=== PATIENT | female | born 1990 | race African-American/Black ===

== ENCOUNTER 2018-03-29 17:23 | Emergency (ER) | payer SELFPAY ==
[~2018-03-29] VITALS: Ht 165.1 cm; Wt 53.9 kg
[2018-03-29 18:10] LABS: HEMATOCRIT 32.1 % (36.0-46.0); HEMOGLOBIN 10.8 G/DL (11.9-15.5); MCH 31.2 PG (29.0-34.0); MCHC 33.6 G/DL (30.0-36.0); MCV 92.8 FL (83-99); PLATELET COUNT 253 K/uL (156-360); RBC DIS.WIDTH-CV 12.8 % (11.8-14.6); RBC DIS.WIDTH-SD 43.8 % (39-53); RED BLOOD COUNT 3.46 M/uL (3.80-5.20); WHITE BLOOD COUNT 7.7 K/uL (4.1-10.2)
[2018-03-29 18:18] LABS: ALBUMIN 4.7 g/dL (3.2-4.8); CHLORIDE 108 mEq/L (99-109); POTASSIUM 4.2 mEq/L (3.7-5.4); SODIUM 140 mEq/L (136-147)
[2018-03-29 18:20] LABS: GLUCOSE 100 mg/dL (70-99)
[2018-03-29 18:21] LABS: TOTAL PROTEIN 7.8 g/dL (6.4-8.3)
[2018-03-29 18:22] LABS: TOTAL BILIRUBIN 0.4 mg/dL (0.0-1.0)
[2018-03-29 18:24] LABS: ALKALINE PHOSPHATASE 66 IU/L (3-129); CREATININE 0.9 mg/dL (0.6-1.3)
[2018-03-29 18:25] LABS: UREA NITROGEN (BUN) 14 mg/dL (9-23)
[2018-03-29 18:26] LABS: AST (GOT) 16 IU/L (2-34)
[2018-03-29 18:27] LABS: ALT (GPT) 13 IU/L (3-49)
[2018-03-29 18:29] LABS: GFR ESTIMATE (CALCULATED) > 59 mL/min/
[2018-03-29 18:33] LABS: QUANTITATIVE HCG 336.5 MIU/ML
[2018-03-29 18:42] LABS: APPEARANCE CLEAR ((CLEAR)); BILIRUBIN NEGATIVE; BLOOD NEGATIVE; COLOR YELLOW ((YELLOW)); GLUCOSE (STRIP) NEGATIVE; KETONES 5; LEUKOCYTES NEGATIVE; NITRITE NEGATIVE; PROTEIN (STRIP) NEGATIVE; SPECIFIC GRAVITY 1.019 (1.000-1.030); UCUL ADDED? NO
[2018-03-29 18:43] LABS: SOURCE SWAB
[2018-03-29 20:50] VITALS: BP 124/70
[2018-03-29 21:05] LABS: CANDIDA DNA PROBE NEGATIVE; GARDNERELLA DNA PROBE POSITIVE; TRICHOMONAS DNA PROBE NEGATIVE
== END 2018-03-29 21:00 | disposition home or self-care (01) ==
LOC: EME 17:23
PROVIDERS: Nurse Practitioner Acute Care
DX: O20.0 Threatened abortion (principal); D25.9 Leiomyoma of uterus, unspecified; R93.8 Abnormal findings on diagnostic imaging of other specified body structures; Z3A.01 Less than 8 weeks gestation of pregnancy
CPT/HCPCS: 76801; 80053; 81003; 84702; 85027; 87210; 87480; 87491; 87510; 87591; 87660; 99281; 99284

== ENCOUNTER 2018-06-26 17:12 | Emergency (ER) | payer OTHER ==
[~2018-06-26] VITALS: Ht 162.6 cm; Wt 53.5 kg
[2018-06-26 19:22] LABS: HEMATOCRIT 30.6 % (36.0-46.0); HEMOGLOBIN 10.3 G/DL (11.9-15.5); MCH 31.6 PG (29.0-34.0); MCHC 33.7 G/DL (30.0-36.0); MCV 93.9 FL (83-99); PLATELET COUNT 291 K/uL (156-360); RBC DIS.WIDTH-CV 13.4 % (11.8-14.6); RED BLOOD COUNT 3.26 M/uL (3.80-5.20); WHITE BLOOD COUNT 10.4 K/uL (4.1-10.2)
[2018-06-26 19:42] LABS: CHLORIDE 105 mEq/L (99-109); POTASSIUM 3.5 mEq/L (3.7-5.4); SODIUM 136 mEq/L (136-147)
[2018-06-26 19:44] LABS: GLUCOSE 78 mg/dL (70-99)
[2018-06-26 19:48] LABS: CREATININE 0.7 mg/dL (0.6-1.3); GFR ESTIMATE (CALCULATED) > 59 mL/min/
[2018-06-26 19:49] LABS: UREA NITROGEN (BUN) 12 mg/dL (9-23)
[2018-06-26 20:08] LABS: APPEARANCE CLOUDY ((CLEAR)); BILIRUBIN NEGATIVE; BLOOD SMALL; COLOR YELLOW ((YELLOW)); GLUCOSE (STRIP) NEGATIVE; KETONES 20; LEUKOCYTES NEGATIVE; NITRITE NEGATIVE; PROTEIN (STRIP) 100; SPECIFIC GRAVITY 1.033 (1.000-1.030)
[2018-06-26 20:22] LABS: BACTERIA NONE SEEN /HPF; CALCIUM OXALATE CRYSTALS 4+ /HPF; EPITHELIAL CELLS RARE /HPF; MUCUS 4+ /LPF; RED BLOOD CELLS 0-5 /HPF (0-5); UCUL ADDED? YES
[2018-06-26 20:36] VITALS: BP 124/53
== END 2018-06-26 20:36 | disposition home or self-care (01) ==
LOC: EME 17:12
PROVIDERS: Physician Assistant
DX: O26.892 Other specified pregnancy related conditions, second trimester (principal); R10.31 Right lower quadrant pain; O34.12 Maternal care for benign tumor of corpus uteri, second trimester; Z3A.17 17 weeks gestation of pregnancy
CPT/HCPCS: 76705; 76805; 80048; 81003; 85027; 87086; 99281; 99283